=== PATIENT | male | born 1980 | race African-American/Black ===

== ENCOUNTER 2021-10-31 08:23 | Emergency (ER) | payer SELFPAY ==
[~2021-10-31] VITALS: Ht 185.4 cm; Wt 128.5 kg
[2021-10-31 09:31] LABS: BASO # 0.1 x10^3/uL (0.0-0.2); BASO % 2 % (0-3); EOS # 0.1 x10^3/uL (0.0-0.7); EOS % 2 % (0-3); HEMATOCRIT 41.7 % (39.0-53.0); HEMOGLOBIN 14.7 g/dL (13.0-17.5); LYMPH # 3.4 x10^3/uL (1.0-4.8); LYMPH % 51 % (24-48); MEAN CORPUSCULAR HEMOGLOBIN 31 pg (25-35); MEAN CORPUSCULAR HGB CONC 35 g/dL (31-37); MEAN CORPUSCULAR VOLUME 87 fL (79-100); MONO # 0.4 x10^3/uL (0.0-1.1); MONO % 6 % (0-9); NEUT # 2.7 x10^3/uL (1.8-7.7); NEUT % 39 % (31-73); PLATELET COUNT 213 x10^3/uL (140-400); RED BLOOD COUNT 4.78 x10^6/uL (4.30-5.70); RED CELL DISTRIBUTION WIDTH 14.1 % (11.5-14.5); WHITE BLOOD COUNT 6.8 x10^3/uL (4.0-11.0)
--- NOTE | 2021-10-31 09:49 | RAD ---
EXAM: AP View of the chest DATE: 10/31/2021 8:55 AM INDICATION: Reason: CHEST PAIN / Spl. Instructions: / History: COMPARISON: No Prior FINDINGS: The heart is not enlarged. Mediastinal and hilar contours are normal. Patchy airspace opacities left lung base No pleural effusion or pneumothorax. IMPRESSION: Patchy airspace opacities left lung base, likely consolidative process such as pneumonia. Electronically signed by: Yanick Garcia MD (10/31/2021 9:46 AM) MARGY
[2021-10-31 09:50] LABS: CALCIUM 8.5 mg/dL (8.5-10.1); CREATININE 1.3 mg/dL (0.7-1.3); GFR 74.4; POTASSIUM 3.3 mmol/L (3.5-5.1)
[2021-10-31 09:56] LABS: ALBUMIN 3.7 g/dL (3.4-5.0); ALBUMIN/GLOBULIN RATIO 0.9 (1.0-1.7); TOTAL BILIRUBIN 0.4 mg/dL (0.2-1.0)
--- NOTE | 2021-10-31 10:00 | PHYS DOC ---
Past Medical History Past Medical History: Hypertension Additional Past Medical Histor: MUSCLE SPASMS/BACK, obesity Past Surgical History: No Surgical History Smoking Status: Current Every Day Smoker Additional Information: < 1 PPD Alcohol Use: Rarely General Adult EDM: Chief Complaint: CHEST PAIN HPI: HPI: Patient is a 41 year old male with history of HTN, obesity, tobacco abuse who presents with left-sided chest pain. Pain started last night at 7 PM while at rest. Described as tightness. Radiates towards the left arm. Has been constant since onset. Worse with exertion, but also with movements of his left upper extremity. Feels like his pec muscle is tight going towards his left shoulder. Feels like his pec muscle feels like a "bead". Has been dealing with m uscle cramps of his lats and has been using cyclobenzaprine a few times which helps. Not pleuritic or positional. Also associated with shortness of breath. Denies fever/chills, sore throat, rhinorrhea, cough, hemoptysis. He is partially vaccinated with Moderna (1 of 2 shots). No sick contacts. Denies any recent lower extremity edema. No personal or family history of blood clots/VTE. Not on blood thinning medications. No recent surgeries or immobilization. No cancer history. Reports history of a grandfather with NM in his 50s. Review of Systems: Review of Systems: Constitutional: Denies fever or chills. [] Eyes: Denies change in visual acuity. [] HENT: Denies nasal congestion or sore throat. [] Respiratory: Denies cough. Reports shortness of breath. Cardiovascular: Reports chest pain. GI: Denies abdominal pain, nausea, vomiting, bloody stools or diarrhea. [] : Denies dysuria. [] Musculoskeletal: Denies back pain or joint pain. [] Integument: Denies rash. [] Neurologic: Denies headache, focal weakness or sensory changes. [] ] Psychiatric: Denies depression or anxiety. [] Heart Score: C/O Chest Pain: Yes HEART Score for Chest Pain: HEART Score for Chest Pain Response (Comments) Value History Slighlty/Non-Suspicious 0 ECG Nonspecific Repolarizatio 1 Age < 45 0 Risk Factors >3 Risk Factors or Hx CAD 2 Total 3 Risk Factors: Risk Factors: HTN, smoking, obesity Risk Scores: Score 0 - 3: 2.5% MACE over next 6 weeks - Discharge Home Score 4 - 6: 20.3% MACE over next 6 weeks - Admit for Clinical Observation Score 7 - 10: 72.7% MACE over next 6 weeks - Early Invasive Strategies Family History: Family History: Grandfather with NM in early/mid 50s Allergies: Allergies: Allergies Coded Allergies Type Severity Reaction Last Updated Verified No Known Drug Allergies 10/31/21 No Physical Exam: PE: Constitutional: Well developed, well nourished, no acute distress, non-toxic appearance. [] HENT: Normocephalic, atraumatic Eyes: PERRLA, EOMI, conjunctiva normal, no discharge. [] Neck: Normal range of motion, no tenderness, supple, no stridor. [] Cardiovascular:Heart rate regular rhythm, no murmur [] Lungs & Thorax: Distant breath sounds, no wheezing, crackles evident. Normal work of breathing. Abdomen: Bowel sounds normal, soft, no tenderness, no masses, no pulsatile masses. [] Skin: Warm, dry, no erythema, no rash. [] Extremities: No tenderness, no cyanosis, no clubbing, ROM intact, no edema. [] Neurologic: Alert and oriented X 3, normal motor function, normal sensory function, no focal deficits noted. [] Psychologic: Affect normal, judgement normal, mood normal. [] Current Patient Data: Labs: Laboratory Tests Test 10/31/21 08:40 White Blood Count 6.8 x10^3/uL (4.0-11.0) Red Blood Count 4.78 x10^6/uL (4.30-5.70) Hemoglobin 14.7 g/dL (13.0-17.5) Hematocrit 41.7 % (39.0-53.0) Mean Corpuscular Volume 87 fL (79-100) Mean Corpuscular Hemoglobin 31 pg (25-35) Mean Corpuscular Hemoglobin Concent 35 g/dL (31-37) Red Cell Distribution Width 14.1 % (11.5-14.5) Platelet Count 213 x10^3/uL (140-400) Neutrophils (%) (Auto) 39 % (31-73) Lymphocytes (%) (Auto) 51 % (24-48) H Monocytes (%) (Auto) 6 % (0-9) Eosinophils (%) (Auto) 2 % (0-3) Basophils (%) (Auto) 2 % (0-3) Neutrophils # (Auto) 2.7 x10^3/uL (1.8-7.7) Lymphocytes # (Auto) 3.4 x10^3/uL (1.0-4.8) Monocytes # (Auto) 0.4 x10^3/uL (0.0-1.1) Eosinophils # (Auto) 0.1 x10^3/uL (0.0-0.7) Basophils # (Auto) 0.1 x10^3/uL (0.0-0.2) Sodium Level 143 mmol/L (136-145) Potassium Level 3.3 mmol/L (3.5-5.1) L Chloride Level 103 mmol/L (98-107) Carbon Dioxide Level 31 mmol/L (21-32) Anion Gap 9 (6-14) Blood Urea Nitrogen 11 mg/dL (8-26) Creatinine 1.3 mg/dL (0.7-1.3) Estimated GFR (Cockcroft-Gault) 74.4 BUN/Creatinine Ratio 8 (6-20) Glucose Level 94 mg/dL (70-99) Calcium Level 8.5 mg/dL (8.5-10.1) Total Bilirubin Pending Aspartate Amino Transferase (AST) Pending Alanine Aminotransferase (ALT) Pending Alkaline Phosphatase Pending Total Protein Pending Albumin Pending Albumin/Globulin Ratio Pending Laboratory Tests 10/31/21 08:40 Laboratory Tests 10/31/21 08:40 Vital Signs: Vital Signs Date Time Temp Pulse Resp B/P (MAP) Pulse Ox O2 Delivery O2 Flow Rate FiO2 10/31/21 08:27 98.6 99 20 174/110 (131) 98 Room Air 98.6 EKG: EKG: Sinus rhythm. Right axis deviation. Inferior Q deflections in [address] elevation or depression. T wave inversions in 1 and aVL [] Radiology/Procedures: Radiology/Procedures: [] Impression: [facility] [address] [place] [address] IMAGING REPORT Signed PATIENT: RUPA BENITO ACCOUNT: [id number] : 1980 LOCATION: ER AGE: 41 SEX: M EXAM STATUS: REG ER ORD. PHYSICIAN: LESLIE VEGA MD REASON: CHEST PAIN PROCEDURE: PORTABLE CHEST 1V EXAM: AP View of the chest DATE: 10/31/2021 8:55 AM INDICATION: Reason: CHEST PAIN / Spl. Instructions: / History: COMPARISON: No Prior FINDINGS: The heart is not enlarged. Mediastinal and hilar contours are normal. Patchy airspace opacities left lung base No pleural effusion or pneumothorax. IMPRESSION: Patchy airspace opacities left lung base, likely consolidative process such as pneumonia. Electronically signed by: Yanick Hays MD (10/31/2021 9:46 AM) [facility] DICTATED and SIGNED BY: YANICK HAYS MD DATE: 10/31/21 [id number] [facility] [address] [place] [address] IMAGING REPORT Signed PATIENT: RUPA BENITO ACCOUNT: [id number] : 1980 LOCATION: ER AGE: 41 SEX: M EXAM STATUS: REG ER ORD. PHYSICIAN: LESLIE VEGA MD REASON: chest pain, sob, ? LLL infiltrate on xr PROCEDURE: CT ANGIOGRAPHY CHEST EXAMINATION: CTA CHEST CLINICAL HISTORY: Chest pain, sob, possible LLL infiltrate on xr Technique: Spiral CT acquisition of the chest from the thoracic inlet to the upper abdomen following IV contrast with coronal and sagittal reformatted images also provided for review. 3D maximum intensity projection images also performed. CT Dose Reduction Employed: One or more of the following individualized dose reduction techniques were utilized for this examination: 1. Automated exposure control 2. Adjustment of the mA and/or kV according to patient size 3. Use of iterative reconstruction technique. COMPARISON: Chest radiograph same day FINDINGS: Limitations: Suboptimal study due to non-ideal pulmonary arterial enhancement and respiratory motion. Pulmonary Vasculature: No evidence of main or definite lobar pulmonary arterial thrombus. Lung Parenchyma, Pleura, and Airways: No focal consolidation. No pleural effusion. Central airways patent. Lower Neck, Lymph Nodes, and Mediastinum: Visualized thyroid gland within normal limits. No mediastinal, hilar, or axillary lymphadenopathy. Heart, Pericardium, and Thoracic Vessels: Cardiac chambers normal in size. No pericardial effusion. Thoracic aorta within normal limits. Bones and Soft Tissues: No evidence of acute osseous abnormality. Upper Abdomen: Small old calcified granuloma in the spleen. IMPRESSION: No evidence of main or definite lobar pulmonary embolism on limited evaluation as described. No evidence of acute cardiopulmonary abnormality. Electronically signed by: Avinash Lazcano DO (10/31/2021 11:17 AM) [id number] DICTATED and SIGNED BY: AVINASH LAZCANO DO DATE: 10/31/21 [id number] 0 Course & Med Decision Making: Course & Med Decision Making Pertinent Labs and Imaging studies reviewed. (See chart for details) Patient a 41-year-old male with history of HTN, obesity, smoking who presents with exertional left-sided chest tightness and shortness of breath. VSS and afebrile on arrival. EKG shows right axis deviation, inferior Q waves, T wave inversions in 1 aVL, but no acute ST segment changes. Troponin is 10, and given duration/timing of symptoms is sufficient to rule out NM. HEART Score is 3. CXR w/ LLL infiltrate, but patient has not had any cough, sputum production, fever/chills or other symptoms to suggest pneumonia. He is a smoker. Will obtain CTA chest to further investigate and to exclude PE. No pericarditis changes on EKG. Pain does not seem c/w aortic injury, mediast inum normal appearance on CXR. Do not feel aortic dissection requires further work up. 1045 CTA without acute process. No LLL infiltrate. No PE. On re-evaluation patient now feels like this is a pec muscle spasm. HEART score 3 will refer to PCP for further evaluation of chest discomfort and for consideration of PT if muscular spasm continue to be prominent. [id number] Unique Disclaimer: Unique Disclaimer: This electronic medical record was generated, in whole or in part, using a voice recognition dictation system. Departure Departure Impression: Primary Impression: Chest pain Additional Impression: Strain of left pectoralis muscle Disposition: HOME / SELF CARE / HOMELESS Condition: STABLE Referrals: UNKNOWN PCP NAME (PCP) Additional Instructions: There is no signs of a heart attack, blood clot, pneumonia, injury to your lungs, the major blood vessels in your chest. This seems like it may be likely due to muscle spasms. Please continue to take your cyclobenzaprine. You can take up to 3 times a day, but avoid during times when drowsiness may be a safety hazard. For pain tylenol and ibuprofen are best used on a schedule. Please alternate between the two. -Tylenol 1000 mg every 6 hours (do not exceed 4000 mg in one day) -Ibuprofen 400 mg every 6 hours. Take with food. Do not take for more than 1 week. Please schedule follow-up appointment with your primary care doctor to discuss your ongoing symptoms, and potential other management options such as physical therapy. If you develop chest pain that is worse with exerting herself, worsening shortness of breath, or other new/concerning symptoms please return to the emergency department for reevaluation. LESLIE VEGA MD Oct 31, 2021 10:00
[2021-10-31] MEDS ORDERED: IOHEXOL 350 MG/ML 100 ML VIAL. IV ONE (10:30)
[2021-10-31] MEDS ORDERED: CONTRAST GIVEN. MC PRN (10:45)
--- NOTE | 2021-10-31 11:20 | RAD ---
EXAMINATION: CTA CHEST CLINICAL HISTORY: Chest pain, sob, possible LLL infiltrate on xr Technique: Spiral CT acquisition of the chest from the thoracic inlet to the upper abdomen following IV contrast with coronal and sagittal reformatted images also provided for review. 3D maximum intensi ty projection images also performed. CT Dose Reduction Employed: One or more of the following individualized dose reduction techniques wer e utilized for this examination: 1. Automated exposure control 2. Adjustment of the mA and/or kV ac cording to patient size 3. Use of iterative reconstruction technique. COMPARISON: Chest radiograph same day FINDINGS: Limitations: Suboptimal study due to non-ideal pulmonary arterial enhancement and respiratory motion. Pulmonary Vasculature: No evidence of main or definite lobar pulmonary arterial thrombus. Lung Parenchyma, Pleura, and Airways: No focal consolidation. No pleural effusion. Central airways pa tent. Lower Neck, Lymph Nodes, and Mediastinum: Visualized thyroid gland within normal limits. No mediastin al, hilar, or axillary lymphadenopathy. Heart, Pericardium, and Thoracic Vessels: Cardiac chambers normal in size. No pericardial effusion. T horacic aorta within normal limits. Bones and Soft Tissues: No evidence of acute osseous abnormality. Upper Abdomen: Small old calcified granuloma in the spleen. IMPRESSION: No evidence of main or definite lobar pulmonary embolism on limited evaluation as described. No evidence of acute cardiopulmonary abnormality. Electronically signed by: Avinash Pool DO (10/31/2021 11:17 AM) [id number]
[2021-10-31 12:06] VITALS: BP 170/100
--- NOTE | 2021-10-31 14:50 | EKG ---
[facility] [address] [place] [address] Test Date: 2021-10-31 Test Time: 08:33:00 Pat Name: RUPA BENITO Department: Room: Gender: M Machine Operator Slitter Technician: : 1980 Requested By: LESLIE VEGA Order Number: [id number] Reading MD: Rusty Thompson Measurements Intervals [place] Rate: 100 P: 135 [place]: 146 QRS: 172 QRSD: 82 T: 178 QT: 346 QTc: 449 Interpretive Statements SINUS RHYTHM ABNORMAL RIGHT AXIS DEVIATION QRS(T) CONTOUR ABNORMALITY CONSISTENT WITH HIGH LATERAL INFARCT AGE UNDETERMINED CONSIDER INFERIOR INFARCT Electronically Signed On 11-02-2021 11:56:26 FIGHTER PILOT by Rusty Thompson
== END 2021-10-31 12:13 | disposition home or self-care (01) ==
LOC: ER 08:23
DX: S29.011A Strain of muscle and tendon of front wall of thorax, initial encounter (principal); I10 Essential (primary) hypertension; F17.200 Nicotine dependence, unspecified, uncomplicated; X50.9XXA Other and unspecified overexertion or strenuous movements or postures, initial encounter; Y93.89 Activity, other specified; Y92.89 Other specified places as the place of occurrence of the external cause; Y99.8 Other external cause status
CPT/HCPCS: 36415; 71045; 71275; 80053; 84484; 85025; 85379; 93005; 99285; Q9967

== ENCOUNTER 2021-12-08 10:00 | Emergency (ER) | payer SELFPAY ==
[~2021-12-08] VITALS: Ht 185.4 cm; Wt 128.5 kg
[2021-12-08 10:43] VITALS: BP 150/96
[2021-12-08] MEDS ORDERED: NAPROXEN 500 MG TABLET PO ONE (10:45)
[2021-12-08] MEDS ORDERED: CEPHALEXIN 250 MG CAPSULE. PO SCH (10:45)
[2021-12-08] MEDS ORDERED: SMZ/TMP 800/160MG TABLET. PO ONE (10:45)
[2021-12-08] MEDS ORDERED: NAPR-514 PO (10:53)
[2021-12-08] MEDS ORDERED: CEPH500C PO (10:53)
[2021-12-08] MEDS ORDERED: SULF1TAB24 PO (10:53)
--- NOTE | 2021-12-08 10:53 | PHYS DOC ---
Past Medical History Past Medical History: Hypertension Additional Past Medical Histor: MUSCLE SPASMS/BACK, obesity Past Surgical History: No Surgical History Smoking Status: Current Every Day Smoker Additional Information: 6 cigarettes/day Alcohol Use: Occasionally Adult General Chief Complaint Chief Complaint: HEMORRHOIDS HPI HPI The patient is a 41-year-old male with a history of hypertension who is otherwise healthy. He presents for evaluation of a small tender lesion to the superior aspect of his gluteal crease with onset 2 days prior to arrival. Patient states it is uncomfortable to sit down because of the area in question. Patient denies any fevers, nausea or vomiting, abdominal pain of any kind, flank pain, midline back pain, groin pain, dysuria, hematuria, polyuria or oliguria, changes in bowel habits. Patient is alert and pleasantly and appropriately interactive and in no acute distress with appropriate vital signs aside from elevated blood pressure upon initial evaluation here in the emergency department. Review of Systems Review of Systems A 12 point review of systems was completed and was negative except where noted in HPI above. Current Medications Current Medications Current Medications Medications (Trade) Dose Ordered Sig/Tory Start Time Stop Time Status Last Admin Dose Admin Cephalexin HCl (Keflex) 500 mg ONCE 12/08/21 10:45 Naproxen (Naprosyn) 500 mg 1X ONCE 12/08/21 10:45 12/08/21 10:46 Trimethoprim/ Sulfamethoxazole (Bactrim Ds) 1 tab 1X ONCE 12/08/21 10:45 12/08/21 10:46 Allergies Allergies Allergies Coded Allergies Type Severity Reaction Last Updated Verified No Known Drug Allergies 10/31/21 No Physical Exam Physical Exam 41-year-old male appearing nontoxic and in no acute distress. Head is normocephalic and atraumatic. Neck is supple and nontender. Oropharynx is moist. Lungs are clear to auscultation at all stations. There is a normal S1 and S2 without rubs or gallops and capillary refill is appropriate, less than 2 seconds globally. Abdomen is soft, nontender nondistended. Skin is warm and dry without cyanosis, clubbing or edema. Psychiatrically, the patient demonstrates appropriate mood and affect and is alert. Urogenital and rectal examination within normal limits aside from an approximately 1 cm indurated tender lesion to the superior aspect of the gluteal crease at midline, several centimeters superior to, and distant from, the rectum. No rectal involvement. Current Patient Data Vital Signs Vital Signs Date Time Temp Pulse Resp B/P (MAP) Pulse Ox O2 Delivery O2 Flow Rate FiO2 12/08/21 10:01 98.2 105 24 177/122 (140) 99 Room Air 98.2 EKG EKG [] Radiology/Procedures Radiology/Procedures [] Course & Med Decision Making Course & Med Decision Making Clinical examination reveals a small area of cellulitis versus abscess to the superior aspect of the gluteal crease. Recommended to patient that we proceed with I&D procedure followed by an antibiotic course but he is strongly against I&D at this time and would prefer to try antibiotics alone first. I counseled him, and he understands, that he is at risk for decompensation and permanent disability in refusing I&D procedure which is indicated for treatment of probable small buttocks abscess. He agrees to accept those risks and to be wholly and solely responsible for them in their entirety. He promises to return right away if symptoms do not significantly improve with antibiotic treatment over the next 1 to 2 days. Patient also understands that if he feels worse instead of better or develops other new symptoms of concern that he should return right away for reevaluation. All questions are answered. As we are not able to complete I&D today, will double cover with Keflex and Bactrim and will prescribe naproxen for discomfort. Patient is directed to follow-up closely with primary in the next 2 to 4 days. All questions are answered. Dragon Disclaimer Dragon Disclaimer This electronic medical record was generated, in whole or in part, using a voice recognition dictation system. Departure Departure Impression: Primary Impression: Abscess of buttock Disposition: HOME / SELF CARE / HOMELESS Condition: STABLE Patient Instructions: Abscess, [id number] Additional Instructions: As we discussed, you have declined a procedure to simona and drain your buttocks infection/abscess today. If you change your mind and would like to have the procedure completed, and/or if symptoms worsen or simply do not get better over the next 1 to 2 days, return right away and we will be more than happy to take care of you. Begin taking the Keflex and Bactrim antibiotics as prescribed and take until both medications are gone over the next 10 days. Take a 500 mg naproxen pill every 12 hours as needed for discomfort. Return to the emergency department right away for worsening symptoms of any kind or with any other new symptoms of concern. Scripts Naproxen (NAPROXEN) 500 Mg Tablet 1 TAB PO BID for pain, #30 TAB 0 Refills Prov: GEMA JO MD 12/08/21 Cephalexin (KEFLEX) 500 Mg Capsule 500 MG PO QID for 10 Days, #40 CAP Prov: GEMA JO MD 12/08/21 Sulfamethoxazole/Trimethoprim (BACTRIM DS TABLET) 1 Each Tablet 1 TAB PO BID for infection for 10 Days, #20 TAB Prov: GEMA JO MD 12/08/21 GEMA JO MD Dec 08, 2021 10:53
[2021-12-08] MEDS ORDERED: CEPHALEXIN 250 MG CAPSULE. PO ONE (11:00)
== END 2021-12-08 11:02 | disposition home or self-care (01) ==
LOC: ER 10:00
DX: L02.31 Cutaneous abscess of buttock (principal); I10 Essential (primary) hypertension; F17.210 Nicotine dependence, cigarettes, uncomplicated
CPT/HCPCS: 99283

== ENCOUNTER 2022-02-03 15:09 | Emergency (ER) | payer BC ==
[~2022-02-03] VITALS: Ht 188 cm; Wt 119.4 kg
[~2022-02-03 15:09] MED LIST: CEPH500C PO; NAPR-514 PO; SULF1TAB24 PO
[2022-02-03 15:12] VITALS: BP 161/114
[2022-02-03] MEDS ORDERED: ONDANSETRON PF 4 MG/2 ML VIAL. IVP ONE (16:15)
[2022-02-03] MEDS ORDERED: IV NORMAL SALINE 1000ML BAG 1,000 ML IV ONE (16:15)
[2022-02-03 16:29] LABS: BASO % 1 % (0-3); EOS % 1 % (0-3); HEMATOCRIT 42.6 % (39.0-53.0); HEMOGLOBIN 14.4 g/dL (13.0-17.5); LYMPH % 42 % (24-48); MEAN CORPUSCULAR HEMOGLOBIN 30 pg (25-35); MEAN CORPUSCULAR HGB CONC 34 g/dL (31-37); MEAN CORPUSCULAR VOLUME 89 fL (79-100); MONO # 0.4 x10^3/uL (0.0-1.1); MONO % 9 % (0-9); NEUT # 2.2 x10^3/uL (1.8-7.7); NEUT % 47 % (31-73); PLATELET COUNT 167 x10^3/uL (140-400); RED BLOOD COUNT 4.79 x10^6/uL (4.30-5.70); RED CELL DISTRIBUTION WIDTH 14.6 % (11.5-14.5); WHITE BLOOD COUNT 4.7 x10^3/uL (4.0-11.0)
[2022-02-03 16:43] LABS: CALCIUM 8.6 mg/dL (8.5-10.1); CREATININE 1.3 mg/dL (0.7-1.3); GFR 74.4; POTASSIUM 3.7 mmol/L (3.5-5.1)
[2022-02-03 16:48] LABS: ALBUMIN 3.7 g/dL (3.4-5.0); ALBUMIN/GLOBULIN RATIO 0.9 (1.0-1.7); TOTAL BILIRUBIN 0.4 mg/dL (0.2-1.0)
[2022-02-03] MEDS ORDERED: ONDA4TAB12 PO (17:14)
--- NOTE | 2022-02-03 17:15 | PHYS DOC ---
Past Medical History Past Medical History: Hypertension Additional Past Medical Histor: MUSCLE SPASMS/BACK, obesity Past Surgical History: No Surgical History Smoking Status: Current Every Day Smoker Alcohol Use: Occasionally General Adult EDM: Chief Complaint: NAUSEA/VOMITING/DIARRHEA HPI: HPI: Patient is a 41 year old male with history of hypertension presented to the ED today complaining of nausea, vomiting, diarrhea, symptoms began 3 days ago. Patient denies any hematemesis or melena. Denies any fever. Review of Systems: Review of Systems: Constitutional: Denies fever or chills. [] Eyes: Denies change in visual acuity. [] HENT: Denies nasal congestion or sore throat. [] Respiratory: Denies cough or shortness of breath. [] Cardiovascular: Denies chest pain or edema. [] GI: Reports nausea, vomiting, diarrhea, denies any abdominal pain, hematemesis or melena : Denies dysuria. [] Musculoskeletal: Denies back pain or joint pain. [] Integument: Denies rash. [] Neurologic: Denies headache, focal weakness or sensory changes. [] Psychiatric: Denies depression or anxiety. [] Heart Score: C/O Chest Pain: N/A Risk Factors: Risk Factors: DM, Current or recent (<one month) smoker, HTN, HLP, family history of CAD, obesity. Risk Scores: Score 0 - 3: 2.5% MACE over next 6 weeks - Discharge Home Score 4 - 6: 20.3% MACE over next 6 weeks - Admit for Clinical Observation Score 7 - 10: 72.7% MACE over next 6 weeks - Early Invasive Strategies Current Medications: Current Medications Medications (Trade) Dose Ordered Sig/Tory Start Time Stop Time Status Last Admin Dose Admin Ondansetron HCl (Zofran) 4 mg 1X ONCE 02/03/22 16:15 02/03/22 16:16 DC 02/03/22 16:17 4 MG Sodium Chloride 1,000 ml @ 1,000 mls/hr 1X ONCE 02/03/22 16:15 02/03/22 17:14 02/03/22 16:17 1,000 MLS/HR Allergies: Allergies: Allergies Coded Allergies Type Severity Reaction Last Updated Verified No Known Drug Allergies 02/03/22 No Physical Exam: PE: Constitutional: Well developed, well nourished, no acute distress, non-toxic appearance. [] HENT: Normocephalic, atraumatic, bilateral external ears normal, oropharynx moist, no oral exudates, nose normal. [] Eyes: PERRLA, EOMI, conjunctiva normal, no discharge. [] Neck: Normal range of motion, no tenderness, supple, no stridor. [] Cardiovascular:Heart rate regular rhythm, no murmur [] Lungs & Thorax: Bilateral breath sounds clear to auscultation [] Abdomen: Bowel sounds normal, soft, no tenderness, no masses, no pulsatile masses. [] Skin: Warm, dry, no erythema, no rash. [] Back: No tenderness, no CVA tenderness. [] Extremities: No tenderness, no cyanosis, no clubbing, ROM intact, no edema. [] Neurologic: Alert and oriented X 3, normal motor function, normal sensory function, no focal deficits noted. [] Psychologic: Affect normal, judgement normal, mood normal. [] Current Patient Data: Labs: Laboratory Tests Test 02/03/22 16:00 White Blood Count 4.7 x10^3/uL (4.0-11.0) Red Blood Count 4.79 x10^6/uL (4.30-5.70) Hemoglobin 14.4 g/dL (13.0-17.5) Hematocrit 42.6 % (39.0-53.0) Mean Corpuscular Volume 89 fL (79-100) Mean Corpuscular Hemoglobin 30 pg (25-35) Mean Corpuscular Hemoglobin Concent 34 g/dL (31-37) Red Cell Distribution Width 14.6 % (11.5-14.5) H Platelet Count 167 x10^3/uL (140-400) Neutrophils (%) (Auto) 47 % (31-73) Lymphocytes (%) (Auto) 42 % (24-48) Monocytes (%) (Auto) 9 % (0-9) Eosinophils (%) (Auto) 1 % (0-3) Basophils (%) (Auto) 1 % (0-3) Neutrophils # (Auto) 2.2 x10^3/uL (1.8-7.7) Lymphocytes # (Auto) 2.0 x10^3/uL (1.0-4.8) Monocytes # (Auto) 0.4 x10^3/uL (0.0-1.1) Eosinophils # (Auto) 0.0 x10^3/uL (0.0-0.7) Basophils # (Auto) 0.0 x10^3/uL (0.0-0.2) Sodium Level 143 mmol/L (136-145) Potassium Level 3.7 mmol/L (3.5-5.1) Chloride Level 103 mmol/L (98-107) Carbon Dioxide Level 31 mmol/L (21-32) Anion Gap 9 (6-14) Blood Urea Nitrogen 13 mg/dL (8-26) Creatinine 1.3 mg/dL (0.7-1.3) Estimated GFR (Cockcroft-Gault) 74.4 BUN/Creatinine Ratio 10 (6-20) Glucose Level 82 mg/dL (70-99) Calcium Level 8.6 mg/dL (8.5-10.1) Total Bilirubin 0.4 mg/dL (0.2-1.0) Aspartate Amino Transferase (AST) 20 U/L (15-37) Alanine Aminotransferase (ALT) 26 U/L (16-63) Alkaline Phosphatase 71 U/L (46-116) Total Protein 8.0 g/dL (6.4-8.2) Albumin 3.7 g/dL (3.4-5.0) Albumin/Globulin Ratio 0.9 (1.0-1.7) L Lipase 96 U/L (73-393) Ethyl Alcohol Level < 10 mg/dL (0-10) Laboratory Tests 02/03/22 16:00 Laboratory Tests 02/03/22 16:00 Vital Signs: Vital Signs Date Time Temp Pulse Resp B/P (MAP) Pulse Ox O2 Delivery O2 Flow Rate FiO2 02/03/22 15:12 98.7 79 16 161/114 (130) 99 98.7 EKG: EKG: [] Radiology/Procedures: Radiology/Procedures: [] Course & Med Decision Making: Course & Med Decision Making Pertinent Labs and Imaging studies reviewed. (See chart for details) This a 41-year-old male patient presenting to the ED today with nausea vomiting and diarrhea that began yesterday. Labs are negative. Given IV fluids and Zofran. Feeling better. Blood pressure 161/114, history of hypertension, not taking medications. Encouraged this patient to consider taking his blood pressure medicines. Discharged to home supportive care measures recommended, Rx for Zofran. Unique Disclaimer: Unique Disclaimer: This electronic medical record was generated, in whole or in part, using a voice recognition dictation system. Departure Departure Impression: Primary Impression: Nausea and vomiting Qualified Codes: R11.2 - Nausea with vomiting, unspecified Additional Impressions: Diarrhea Qualified Codes: R19.7 - Diarrhea, unspecified Elevated blood pressure reading Disposition: HOME / SELF CARE / HOMELESS Condition: STABLE Referrals: HERNAN BRAR PA-C (PCP) follow up in one week Patient Instructions: Diarrhea, Hypertension, Nausea and Vomiting, [id number] Additional Instructions: You were evaluated in the emergency room for nausea vomiting and diarrhea. Your symptoms are suspicious of a viral illness, push fluids, maintain good hand pain, take Zofran as needed for nausea vomiting. Your blood pressure is running high. Ensure you are taking your blood pressure medicines. Follow-up with your own doctor in 1 week, come back to the ED at any point symptoms worsen Scripts Ondansetron (ONDANSETRON ODT) 4 Mg Tab.rapdis 1 TAB PO PRN Q6-8HRS, #16 TAB Prov: CHALINO SCHWARTZ [employer] MACHINE OPERATOR 02/03/22 CHALINO SCHWARTZ [employer] MACHINE OPERATOR Feb 03, 2022 17:15
[2022-02-03 17:31] LABS: AMPHETAMINE/METHAMPHETAMINE NEG (NEG); BARBITURATES NEG (NEG); BENZODIAZEPINES NEG (NEG); CANNABINOIDS POS (NEG); COCAINE NEG (NEG); METHADONE NEG (NEG); OPIATES NEG (NEG); PHENCYCLIDINE NEG (NEG)
[2022-02-03 17:40] LABS: BACTERIA,URINE 0 /HPF (0-FEW)
== END 2022-02-03 17:21 | disposition home or self-care (01) ==
LOC: ER 15:09
DX: R11.2 Nausea with vomiting, unspecified (principal); R19.7 Diarrhea, unspecified; I10 Essential (primary) hypertension; F17.200 Nicotine dependence, unspecified, uncomplicated
CPT/HCPCS: 36415; 80053; 80307; 81001; 83690; 85025; 96361; 96374; 99283; G0480; J2405; J7030